=== PATIENT | female | born 2000 | race Caucasian/White ===

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

== ENCOUNTER 2025-01-02 20:11 | Emergency (ER) | payer OTHER, SELFPAY ==
--- NOTE | ~2025-01-02 | XR_ITS ---
CLINICAL HISTORY: shortness of breath 2 view chest x-ray Comparison: None provided Findings: Normal size heart. Pulmonary vasculature within normal limits. No consolidation, pleural effusion or pneumothorax. No acute fracture. IMPRESSION: 1. No acute findings. This document has been electronically signed by: Holley Garcia MD on 01/02/2025 20:53:00
[2025-01-02 20:12] VITALS: BP 149/92; PULSE 97; RESP 18; TEMP 36.8; O2SAT 98; BMI 31.2
--- NOTE | 2025-01-02 20:15 | ED.SOB ---
HPI - SOB/Dyspnea General Chief Complaint: Upper Respiratory Symptoms Stated Complaint: asthma Time Seen by Provider: 01/02/25 21:41 History of Present Illness ED Provider: Russ BANEGAS Narrative: The patient is a 24-year-old female. She says that she has a history of asthma since she was a child. She says her asthma has never been very severe. She feels that in the last few weeks she has felt that her breathing has been worse than usual on days that has been very hot and humid. She had a very bad day 4 days ago on Friday when she felt the weather was bad. The next day she felt somewhat better but because she has been feeling bad she went to a walk-in urgent Care Clinic at [facility] in [facility]. She is on control pills. She had a D-dimer done at the urgent care that was negative (the value was 0.25 mg per L, upper limit of normal at 0.49). She was prescribed an albuterol inhaler and advised to go to an emergency room if she felt significantly worse at any time. She felt well on Friday and Friday when she says that whether was good. Today things were very hot and humid again and she felt like she could not breathe well when she went outside into the humid air. She feels that she ?panicked? because she felt she could not fully expand her lungs and came to the emergency room here. While waiting to be seen she is feeling much better. At the time that I saw her she was not feeling short of breath at all. She has had no pain or swelling in her legs. No fever, sweats, chills. Related Data Previous Rx's ?Medication ?Instructions ?Recorded budesonide-formoterol HFA 160 2 puff inhalation BID #10.2 grams 01/02/25 mcg-4.5 mcg/actuation aerosol inhaler Allergies Allergy/AdvReac Type Severity Reaction Status Date / Time No Known Allergies Allergy Verified 01/02/25 20:21 Review of Systems Review of Systems: Yes all other systems are reviewed and are negative FOR[facility] Past Medical History Medical History (Updated 01/03/25 @ 00:01 by Florin Mg) Asthma Social History Social History Smoked in Last 30 Days: No Use of substances other than those prescribed or required for medical reasons: No Advance Directives: No Advance Directives Information Provided: No Physical Exam Vital Signs: Vital Signs: Last Vital Signs Temp 98.1 F 01/02/25 23:14 Pulse 83 01/02/25 23:14 Resp 20 01/02/25 23:14 BP 136/78 01/02/25 23:14 Pulse Ox 99 01/02/25 23:14 O2 Del Method Room Air 01/02/25 23:14 BMI result Body Mass Index 31.2 Const: Other: The patient is awake, alert, pleasant, cooperative. She does not appear in any distress. Orientation/consciousness: patient oriented x3 HEENT: Other: The face is symmetrical. ?Mucous membranes moist. Eyes: Other: Pupils are round equal, conjunctivae are clear, extraocular movements intact Neck: Neck: Yes normal visual inspection, Yes full ROM and Yes no lymphadenopathy Resp: Other: No sal wheezing Effort & Inspection: normal respiratory effort Auscultation: clear to auscultation bilaterally Cardio: Rate: regular rate Rhythm: regular rhythm Heart sounds: S1 normal heart sound present and S2 normal heart sound present GI: Other: Abdomen is soft and nontender Skin: Other: The skin is dry and unremarkable Neuro: General: patient oriented x3, gait normal, tone normal, moves all extremities, no focal motor deficits and CN's II-XI intact bilaterally Extrem: Other: There is no calf swelling or tenderness. No asymmetry. No peripheral edema. 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 Deferred additional HPI, ROS, PE to primary provider. 24 yo female with history of asthma here with complaints shortness of breath/chest tightness at rest. Seen at on and had negative d dimer, EKG. No URI symptoms, fevers, chills. Had been using her inhalers but the pump ran out. Does vape. LS CTA in triage. Normal VS with exception of mild hypertension. Will obtain viral testing, CXR. VSS Medications Administered Discontinued Medications Generic Name Dose Route Start Last Admin Trade Name Freq PRN Reason Stop Dose Admin Albuterol Sulfate 4 puff 01/02/25 21:53 01/02/25 22:56 Albuterol Sulfate 90 Mcg 8 Gm Inhaler INHALE 01/02/25 21:54 4 puff ONCE ONE Administration Medical Decision Making Medical Decision Making MDM Narrative: The patient is a 24-year-old with a history of asthma who presents with intermittent shortness of breath over the last week or 2. She was seen for similar symptoms at a [facility] urgent care center 3 days ago and had a negative D-dimer. (She is on oral contraceptive so she can not be PERCed.) She has been using albuterol without much improvement. She is not certain that the albuterol inhaler she has a his functional. She has a negative chest x-ray today. Negative COVID/influenza/RSV. Clinically the patient seems quite well. She was already feeling better simply having been in an air-conditioned space for awhile. Respiratory therapy was consulted for albuterol puffs with teaching with an AeroChamber spacer. The patient felt considerably better after the albuterol. She will be discharged with a spacer. I will also sent a prescription for formoterol/budesonide. She should follow up with her PCP. Lab Data Labs: Lab Results 01/02/25 Range/Units 20:30 Influenza Type A (PCR) NEGATIVE (Negative) Influenza Type B (PCR) NEGATIVE (Negative) RSV RNA Qual (PCR) NEGATIVE (Negative) SARS-CoV-2 RNA (RT-PCR) NEGATIVE (Negative) Discharge Plan Discharge Clinical Impression: Asthma exacerbation Patient Disposition: Home, Self-Care Instructions: Asthma (ED), How to Use a Metered-Dose Inhaler (ED) Additional Instructions: I have sent a prescription for a different kind of inhaler to your pharmacy. This inhaler combines a bronchodilator medication with a steroid medication. I would recommend using this inhaler instead of the simple albuterol. When you were feeling well you should take 1 or 2 puffs in the morning and 1 or 2 puffs in the evening. When you are feeling mild symptoms of asthma you can increase the frequency up to 2 puffs every 4 hours as needed. Please make an appointment with your regular doctor to discuss your asthma further. Return to the emergency room if you feel significantly more short of breath. Prescriptions: New budesonide-formoterol 160-4.5 mcg/actuation HFA aerosol inhaler 2 puff inhalation BID Qty: 10.2 0RF Referrals: Mally Ross PA [Primary Care Provider, Internal Medicine] Interventions: ED Discharge Assessment Last Done: 01/02/25 23:14 Discharge Date/Time: 01/02/25 23:14 Print Language: Hungarian
--- OUTSIDE RECORDS SUMMARY | 2025-01-02 20:36 | XMS_ITS | Encounter Summary ---
Author Organization [facility] Address [address] [place] [address] Phone Care Team Providers Care Pathology Laboratory Technologist Name Role Phone Provider, Ernestina RANGEL Primary Care Provider [phone] Encounter Details Date Type Department Care Team (Late st Contact Info) Description 01/30/2017 Conversion Encounter [facility] [place], [place] [id number] Social History Tobacco Use Types Packs/Day Years Used Date Smoking Tobacco: Never Comments:Never smoker Comments Unknown Sex and Gender Information Value Date Recorded Sex Assigned at Female 12/29/2019 5:12 PM EDT Legal Sex Female 5:14 PM EDT Gender Identity Female 12/29/2019 5:12 PM EDT Sexual Orientation Straight 12/29/2019 5: 12 PM EDT documented as of this encounter Plan of Treatment Not on file documented as of this encounter Visit Diagnoses Not on filedocumented in this encounter Care Teams Pathology Laboratory Technologist Relationship Specialty Start Date End Date Provider, MD Ernestina [address] [place] [id number] PCP - General Pediatrics 11/14/21 09/22/22 documented as of this encounter
--- OUTSIDE RECORDS SUMMARY | 2025-01-02 20:36 | XMS_ITS | Patient Health Record ---
[facility] Address [address] [facility] [place] [address] Care Team Providers Care Vice President For Instruction Name Role Phone Iman Mccormick MD Primary Care Provider Unamaria esther ilsolo Saenz Kelsie Unavailable [phone] Reason For Referral No Information Medications Medication SIG (Take, Route, Frequency, Duration) Notes Start Date End Date Status Asmanex 60 Metered Doses 220 MCG/INH 1 puff in the evening Inhalation Once a day Active Problems Problem Type SNOMED Code ICD Code Onset Dates Problem Status W/U Status Risk Notes Problem Verruca plantaris (60434992) Verruca Plantaris (078.19) Active confirmed Problem Pain in limb (50257235) Pain in Limb (729.5) Active confirmed Problem Hammer toe (380273335) Hammer toe (735.4) Active confirmed Plan Of Treatment Pending Test Test Name Order Date [id number] Destruction, -09/28/2012 [id number] Destruction, 06-2911/02/2012 [id number] Destruction, -01/25/2013 Insurance Providers Payer Name Payer Address Payer Phone Subscriber Number Group Number Insured Name Patient Relationship to Insured Coverage Start Date Coverage End Date [facility] [address] [facility] [place] [address] [id number] MAGALY RUEDA Natural Child - Insured has Financial Responsibility Medical (General) History Medical History History ICD Code asthma warts
[2025-01-02 21:11] LABS: Resp Syncy Virus RNA Qual PCR NEGATIVE (Negative); SARS COV2 PCR INHOUSE NEGATIVE (Negative)
[2025-01-02] MEDS: Albuterol Sulfate 90 MCG 8 GM INHALER 4 PUFF INHALE (22:56)
[2025-01-02 22:57] VITALS: PULSE 71; O2SAT 99
[2025-01-02 23:09] VITALS: BP 136/78; PULSE 83; RESP 20; TEMP 36.7; O2SAT 99
[2025-01-02 23:14] VITALS: BP 136/78; PULSE 83; RESP 20; TEMP 36.7; O2SAT 99
== END 2025-01-02 23:14 | disposition home or self-care (01) ==
PROVIDERS: Nurse Practitioner Family; Emergency Provider Emergency Medicine; PCP Physician Assistant
DX: J45.901 Unspecified asthma with (acute) exacerbation (principal); R06.02 Shortness of breath; R07.89 Other chest pain; Z03.818 Encounter for observation for suspected exposure to other biological agents ruled out
CPT/HCPCS: 71046; 87637; 94640; 99284

== ENCOUNTER → 2025-01-02 20:18 | Outpatient (BNV) | payer OTHER, SELFPAY | PROVIDERS: PCP Physician Assistant; Visit Provider Specialist | DX: R06.02 Shortness of breath (principal) | CPT/HCPCS: 71046 ==